=== PATIENT | male | born 1960 ===

== ENCOUNTER 2024-12-20 06:26 | Day surgery (SDC) | payer BC, SELFPAY | END 2024-12-20 12:46 | disposition home or self-care (01) | LOC: GI 06:26 | PROVIDERS: ATTENDING PHYSICIAN Internal Medicine Gastroenterology | DX: Z12.11 Encounter for screening for malignant neoplasm of colon (principal); K64.8 Other hemorrhoids; K57.30 Diverticulosis of large intestine without perforation or abscess without bleeding; K63.5 Polyp of colon; K63.9 Disease of intestine, unspecified | CPT/HCPCS: 45380; 88305 ==